=== PATIENT | male | born 1965 | race Caucasian/White ===

== ENCOUNTER 2016-11-07 11:47 | Emergency (ER) | payer BC, OTHER ==
--- NOTE | 2016-11-07 12:12 | ER NURSING DOCUMENTATION ---
Nurse's Notes [facility] Name:Sal Zapata Age:50 yrs Sex:Male :1965 Arrival Date:11/07/2016 Time:11:47 Bed4 Private MD: Diagnosis:Bronchitis Acute;Acute Sinusitis Presentation: 11/07 11:52 Acuity: AUBREY 3 sc1 11:57 Presenting complaint: Patient states: pt has had a sore throat and no productive cough st for three days. pt states he is also having chest pain with cough. Transition of care: Home. 11:57 Method Of Arrival: Private Vehicle st Triage Assessment: 12:02 General: Appears uncomfortable, Behavior is cooperative. Pain: Denies pain. st Cardiovascular: No deficits noted. Respiratory: Airway is patent Respiratory effort is even, unlabored, Respiratory pattern is regular, symmetrical, Breath sounds are clear bilaterally. Reports cough that is non-productive, pain with cough Onset: The symptoms/episode began/occurred building for three days, the patient has moderate shortness of breath. Historical: - Allergies: No known drug Allergies; - Home Meds: 1. citiloram ( medication for depresion) 2. Flonase Nasal 3. brio - PMHx: Asthma; DEPRESSION; - PSHx: KNEE SURGERY; - Tetanus: unknown will f/u with PCP. - Ebola Screening: : Patient denies exposure to infectious person. Patient denies travel to an Ebola-affected area in the 21 days before illness onset. . - Social history: Smoking status: Patient states was never smoker of tobacco. Patient uses alcohol only on a social basis. Patient/guardian denies using marijuana. Screenin:04 Infectious Disease Risk None. Abuse screen: Denies threats or abuse. Denies injuries st from another. pt feels safe at home. Nutritional screening: No deficits noted. Vital Signs: 12:03 BP 152 / 91; Pulse 93; Resp 18; Temp 98.4; Pulse Ox 93% ; Pain 0/10; st ED Course: 11:49 Patient arrived in ED. ds 11:53 Triage completed. sc1 11:53 Enrique Velez MD is Attending Physician. cd 11:57 Nilda Shelley RN is Primary Nurse. st 12:04 Valuables Remains with patient Patient has correct armband on for positive st identification. Bed in low position. Administered Medications: No medications were administered Outcome: 12:02 Discharge ordered by . cd 12:11 Discharged to home ambulatory. 12:11 Condition: stable 12:11 Discharge instructions given to patient, Instructed on discharge instructions, follow up and referral plans. medication usage, Prescriptions given X 1. 12:11 Patient left the ED. 11/08 09:45 Discharge F/U Call: Unable to reach: non-working number sc1 Signatures: Nilda Shelley RN RN st Campbell, Sandy, RN RN sc1 Brook Shay, Reg Reg Enrique Juarez MD MD cd
--- NOTE | 2016-11-07 12:12 | ER PHYSICIAN DOCUMENTATION ---
Physician Documentation [facility] Name:Sal Zapata Age:50 yrs Sex:Male :1965 Arrival Date:11/07/2016 Time:11:47 Bed4 Private MD: Enrique Mclean Disposition: 11/07 12:01 Critical Care: not applicable. Chart complete. cd Disposition: 11/07/16 12:02 Discharged to Home/Self Care. Impression: Bronchitis Acute, Acute Sinusitis. - Condition is Good. - Discharge Instructions: BRONCHITIS, Abx Tx (Adult), SINUSITIS, Abx Tx. - Prescriptions for Zithromax Z- Yuri 250 mg Oral Tablet - take 1 tablet by ORAL route as directed for 5 days Day 1 - take two (2) tablets one time. Day 2, 3, 4 , 5 take one (1) tablet once daily.; 6 tablet. - Medical Reconciliation form form. - Follow up: Private Physician; When: 7 - 10 days; Reason: Recheck today's complaints, Continuance of care. - Problem is new. - Symptoms are unchanged. - Notes: Use your Albuterol Inhaler 2 puffs every 4 - 6 hours for the next 3 - 4 days. Z-Pack as directed... Drink plenty of fluids... Flonase and Claritin-D OTC.... Tylenol as needed.... Mucinex to thin secretions.... HPI: 11:49 This 50 yrs old Male presents to ER via Private Vehicle with complaints of cd URI symptoms and cough. 11:49 The patient or guardian reports cough, described as mild, with no sputum. Onset: The cd symptom(s)/episode began/occurred acutely, 2 day(s) ago. Severity of symptoms: At their worst the symptoms were mild, in the emergency department the symptoms are unchanged. Associated signs and symptoms: Pertinent positives: rhinorrhea, sore throat. The patient has experienced similar episodes in the past. Historical: - Allergies: No known drug Allergies; - Home Meds: 1. citiloram ( medication for depresion) 2. Flonase Nasal 3. brio - PMHx: Asthma; DEPRESSION; - PSHx: KNEE SURGERY; - Tetanus: unknown will f/u with PCP. - Ebola Screening: : Patient denies exposure to infectious person. Patient denies travel to an Ebola-affected area in the 21 days before illness onset. . - Social history: Smoking status: Patient states was never smoker of tobacco. Patient uses alcohol only on a social basis. Patient/guardian denies using marijuana. ROS: 12:00 Constitutional: Positive for poor PO intake, Negative for chills, fever. cd 12:00 Eyes: Negative for acute changes. 12:00 ENT: Positive for rhinorrhea, sinus congestion, sore throat, Negative for sinus pain. 12:00 Neck: Negative for stiffness. 12:00 Respiratory: Positive for cough, pain with cough, Negative for hemoptysis, pleurisy, shortness of breath. 12:00 All other systems are negative. Exam: 12:00 ENT: TM's: are normal, Posterior pharynx: is normal, no erythema, no exudate, Voice: is cd normal. 12:00 Neck: C-spine: vertebral tenderness, is not appreciated, ROM/movement: is normal. 12:00 Respiratory: the patient does not display signs of respiratory distress, Respirations: normal, no acute changes, Breath sounds: are normal, clear throughout, wheezing, is not appreciated. Vital Signs: 12:03 BP 152 / 91; Pulse 93; Resp 18; Temp 98.4; Pulse Ox 93% ; Pain 0/10; st MDM: 11:53 Patient medically screened. cd 12:05 Differential Diagnosis: Bronchitis Upper Respiratory Infection Sinusitis Pharyngitis. cd Data reviewed: vital signs, nurses notes, old medical records, and as a result, I will discharge patient. Data interpreted: Pulse oximetry: on room air is 93 %. Interpretation: normal. Counseling: I had a detailed discussion with the patient and/or guardian regarding: the historical points, exam findings, and any diagnostic results supporting the discharge/admit diagnosis, the need for outpatient follow up, for a recheck, with the patient's primary care provider, to return to the emergency department if symptoms worsen or persist or if there are any questions or concerns that arise at home. Dispensed Medications: No medications were administered Signatures: Nilda Shelley RN RN st Daley, Chris, MD MD cd
== END 2016-11-07 12:12 | disposition home or self-care (01) ==
LOC: ER 11:47
DX: J20.9 Acute bronchitis, unspecified (principal); J01.90 Acute sinusitis, unspecified; Z79.899 Other long term (current) drug therapy
CPT/HCPCS: 99282